=== PATIENT | male | born 1965 | race Caucasian/White ===

== ENCOUNTER 2017-03-11 17:42 | Emergency (ER) | payer BC ==
--- NOTE | 2017-03-11 18:04 | ERNOTE ---
Medical Problem HPI - Narrative Date of Service: 03/11/17 - General Chief Complaint: Laceration Time Seen by Provider: 03/11/17 18:12 Source: patient, family Exam Limitations: no limitations - Immun/Allergies/Home Medications Immunizations: IMMUNIZATION HX Immunizations Up to Date Yes History of Influenza Vaccine No Hx Pneumococcal Vaccination No Allergies/Adverse Reactions: Allergies No Known Allergies Allergy (Verified 03/11/17 17:53) Home Medications: HOME MEDICATIONS Cephalexin Monohydrate [Keflex] 500 mg PO QID #40 cap 03/11/17 [Last Taken Unknown] Lisinopril/Hydrochlorothiazide [Lisinopril-Hctz 10-12.5 mg Tab] 1 each PO DAILY 03/11/17 [Last Taken Unknown] - History of Present History Narrative: patient cut left forarm on waterpipe Timing: constant Severity: mild Modifying Factors - (Improves): Present: rest Modifying Factors - (Worsens): Present: movement Review of Systems - Narrative Narrative: unremarkable - Review of Systems Constitutional: Present: See HPI EYE: Present: no symptoms reported ENT: Present: no symptoms reported Respiratory: Present: no symptoms reported Cardiology: Present: no symptoms reported Gastrointestinal/Abdominal: Present: no symptoms reported Genitourinary: Present: no symptoms reported Musculoskeletal: Present: no symptoms reported Skin: Present: See HPI, other - 4 cm laceration to left forarm Neurological: Present: no symptoms reported, weakness Endocrine: Present: no symptoms reported Hematologic/Lymphatic: Present: no symptoms reported Psych: Present: no symptoms reported All Other Systems: All systems neg except as marked - Narrative Narrative: unremarkable - Patient's Past Medical History Patient History - Medical: No pertinent hx Patient History - Cardiac/Respiratory: Hypertension Patient History - Cancer: No Hx of Cancer Patient History - Surgical Procedures: No surgical history Patient History - Other: None - Family History Family History:: no untoward family reactions to anesthesia, no familial bleeding tendencies, no family history of clotting disorders - Social History Living Situations: home Abuse History: No History of abuse Psych History: No pertinent hx Smoking Status: Current every day smoker Have you smoked in the past 12 months: Yes Do you dip or chew tobacco: No Patient requests Smoking Cessation Consult: No Initiate information on Smoking Cessation: No Alcohol Use: heavy Drug Use: none - Immunizations Immunizations Up to Date: Yes Hx Pneumococcal Vaccination: No History of Influenza Vaccine: No Physical Exam - Physical Exam General Appearance: Present: mild distress Head Exam: Present: normal inspection, no evidence of injury Eye Exam: Normal inspection: bilateral, PERRL: bilateral, EOMI: bilateral Ears, Nose, Throat: Present: normal ENT inspection Neck: Present: normal inspection, nontender Respiratory: Present: no respiratory distress, normal breath sounds, no accessory muscle use, chest nontender, lungs clear Cardiovascular/Chest: Present: regular rate, rhythm, no murmur, normal peripheral pulses Peripheral Pulses: N=norm/S=strong/W=weak/B=bound/A=absent: Carotid (R): Normal , Carotid (L): Normal, Radial (R): Normal, Radial (L): Normal, Femoral (R): Normal, Femoral (L): Normal, Dorsalis-pedis (R): Normal, Dorsalis-pedis (L): Normal Gastrointestinal/Abdominal: Present: normal bowel sounds, nontender, nondistended, soft, no organomegaly Back Exam: Present: normal inspection, normal range of motion, no CVA tenderness , no vertebral tenderness Extremity Exam: Present: other - 4 cm laceration to left forarm semi-circular Neurological Exam: Present: alert, oriented, normal mood/affect, no motor/ sensory deficits DTR: N=norm/NB=norm/brisk/A=abs/DD=dull/dimin/HC=hyperactive: Bicep (R): Normal , Bicep (L): Normal, Tricep (R): Normal, Tricep (L): Normal, Knee (R): Normal, Knee (L): Normal, Ankle (R): Normal, Ankle (L): Normal Skin Exam: Present: normal color, warm/dry Lymphatic Exam: Present: no adenopathy ED Progress - Date and Time Seen: Date and Time: 03/11/17 18:08 condition improved - Vital Signs Patient's Vital Signs:: I have reviewed the patient's vital signs. Vital Signs: Vital Signs 03/11/17 17:54 Temperature 36.4 C L Pulse Rate 121 H Respiratory 14 Rate Blood Pressure 139/90 O2 Sat by Pulse 99 Oximetry - Progress/Reassessment Chief Complaint: Laceration Progress:: Improved - Transfer of Care Expected Disposition: Discharge Procedures Left Arm Date and Time: now Anesthesia: 2% Lidocaine, Local I & D Prep: betadine prep Wound's Depth/Shape: flap Wound Explored: clean Wound Intervention: irrigated w/saline Foreign body identified: other - no foreign body Distal NVT: neuro/vasc intact, no tendon injury Wound Repaired With: sutures Suture Size/Type: 3-0, nylon Number of Sutures: 7 Layer Closure: Simple Wound Dressing: sterile dressing applied Plan - Plan Plan: to be discharged Departure Clinical Impression: Laceration - Departure Disposition: Home self-care Condition: Fair Instructions: Suture Removal, Care After, Laceration Care, Adult, [id number]
[2017-03-11 18:07] VITALS: BP 119/78
[2017-03-11] MEDS ORDERED: CEPHALEXIN MONOHYDRATE 250 MG CAPSULE PO ONE (18:15)
[2017-03-11] MEDS ORDERED: DIPHTH,PERTUSS(ACELL),TET VAC 0.5 ML VIAL IM ONE ×2 (18:16→18:17)
[2017-03-11] MEDS ORDERED: CEPHALEXIN MONOHYDRATE 250 MG CAPSULE ONE (18:19)
== END 2017-03-11 18:27 | disposition home or self-care (01) ==
LOC: ER 17:42
PROC: 0HQEXZZ Repair Left Lower Arm Skin, External Approach (ICD-10-PCS; principal; 2017-03-11)
DX: S51.812A Laceration without foreign body of left forearm, initial encounter (principal); W45.8XXA Other foreign body or object entering through skin, initial encounter; Y93.9 Activity, unspecified; Y92.9 Unspecified place or not applicable; Y99.9 Unspecified external cause status; F17.200 Nicotine dependence, unspecified, uncomplicated; Z23 Encounter for immunization